=== PATIENT | male | born 1990 | race African-American/Black ===

== ENCOUNTER 2016-12-19 17:59 | Emergency (ER) | payer OTHER ==
[~2016-12-19] VITALS: Ht 160 cm; Wt 72.6 kg
[2016-12-19] MEDS ORDERED: ZITHTAB PO (18:22)
[2016-12-19] MEDS ORDERED: AUGMENTIN 875 MG TAB PO ONE (20:15)
[2016-12-19] MEDS ORDERED: predniSONE 10 MG TAB PO ONE (20:15)
[2016-12-19] MEDS ORDERED: IPRATROPIUM 0.5MG/ALBUTEROL 2.5MG INH SOL UD 3ML (DUONEB)(J7620) NEB ONE (20:15)
[2016-12-19] MEDS ORDERED: diphenhydrAMINE 25 MG CAP PO ONE (20:15)
[2016-12-19] MEDS ORDERED: PRED20TA PO (20:51)
[2016-12-19] MEDS ORDERED: AUGM875T27 PO (20:51)
[2016-12-19 22:21] VITALS: BP 136/74
--- NOTE | 2016-12-20 08:25 | REP ---
CHEST, PA AND LATERAL: 12/19/2016. Clinical history: Cough, dyspnea. No prior study. Findings: Two-views show lungs well inflated and without infiltrate, effusion, atelectasis or mass. There are a few cuffed bronchi in the perihilar regions, more on the right than left. This may reflect some bronchitis or reactive airway disease. The heart, mediastinal and hilar contours are normal. Airway intact. Bones unremarkable. No free air. Impression: 1. Minor perihilar changes of bronchitis or reactive airway disease without dense consolidation or effusion. Signed by Abad Moore MD 12/20/2016 08:16 P
== END 2016-12-19 22:23 | disposition home or self-care (01) ==
LOC: M ED 20:25
DX: J45.901 Unspecified asthma with (acute) exacerbation (principal); R21 Rash and other nonspecific skin eruption; L29.9 Pruritus, unspecified; T36.3X5A Adverse effect of macrolides, initial encounter; J20.9 Acute bronchitis, unspecified

== ENCOUNTER → 2019-05-24 | Outpatient (CLI) | payer OTHER ==
[~2019-05-24] MED LIST: AUGM875T28 PO; PRED20TA PO; ZITHTAB PO
[2019-05-24 12:16] LABS: BASO % 0.4 % (0.0-1.0); EOS # 0.2 10^3/uL (0.0-0.5); EOS % 2.2 % (0.0-3.0); HEMATOCRIT 50.4 % (42.0-52.0); HEMOGLOBIN 17.3 g/dl (13.5-17.5); LYMPH # 1.9 10^3/uL (1.5-5.0); LYMPH % 26.4 % (24.0-44.0); MEAN CORPUSCULAR HEMOGLOBIN 31.2 pg (27.0-33.0); MEAN CORPUSCULAR HGB CONC 34.3 g/dl (32.0-36.5); MEAN CORPUSCULAR VOLUME 90.8 fl (80.0-96.0); MONO # 0.8 10^3/uL (0.0-0.8); MONO % 11.5 % (0.0-5.0); NEUTROPHILS # 4.3 10^3/uL (1.5-8.5); NEUTROPHILS % 59.2 % (36.0-66.0); PLATELET COUNT, AUTOMATED 175 10^3/uL (150-450); RED BLOOD COUNT 5.55 10^6/uL (4.30-6.10); WHITE BLOOD COUNT 7.2 10^3/uL (4.0-10.0)
[2019-05-24 12:35] LABS: SICKLE CELL SCREEN NEGATIVE (NEGATIVE)
[2019-05-24 12:36] LABS: BLOOD UREA NITROGEN 15 MG/DL (7-18); CARBON DIOXIDE LEVEL 28 MEQ/L (21-32); CHLORIDE LEVEL 106 MEQ/L (98-107); CREATININE FOR GFR 1.35 MG/DL (0.70-1.30); GLOMERULAR FILTRATION RATE > 60.0 (>60); GLUCOSE, FASTING 77 MG/DL (70-100); POTASSIUM SERUM 4.5 MEQ/L (3.5-5.1); SODIUM LEVEL 143 MEQ/L (136-145)
[2019-05-25 06:45] LABS: HEPATITIS B SURFACE ANTIBODY POSITIVE (POSITIVE)
[2019-05-25 07:25] LABS: HIV 1&2 SCREEN CENTAUR NEGATIVE (NEGATIVE)
== END ==
LOC: M LAB 11:12
DX: Z02.9 Encounter for administrative examinations, unspecified (principal)